=== PATIENT | female | born 1995 | race Caucasian/White ===

== ENCOUNTER 2016-08-22 15:40 | Emergency (ER) | payer BC, OTHER ==
[~2016-08-22] VITALS: Ht 157.5 cm; Wt 49.1 kg
[~2016-08-22 15:40] MED LIST: IBUP-1050 PO; OXYC-57 PO
[2016-08-22 16:03] VITALS: Ht 157.5 cm; Wt 49.1 kg
[2016-08-22] MEDS ORDERED: CEFTRIAXONE SOD INJ 1 GM ADDVIAL IV STA (17:11)
[2016-08-22] MEDS ORDERED: MoRPHine SULFATE 4 MG/ML 1 ML CARP\\VIAL IV STA ×2 (17:11→19:05)
[2016-08-22] MEDS ORDERED: ONDANSETRON INJ 2 MG/ML 2 ML VIAL IV STA ×2 (17:11→19:05)
[2016-08-22] MEDS ORDERED: CEFAZOLIN SOD 1000MG/55 ML D5W IV STA (17:24)
[2016-08-22] MEDS ORDERED: CLON2TAB3 PO (17:27)
[2016-08-22] MEDS ORDERED: DPPRI400 INJ (17:29)
[2016-08-22] MEDS ORDERED: DIPHTHERIA/TETANUS/PERTUSSIS 0.5 ML SYR/VIAL IM. ONE (17:30)
[2016-08-22 17:42] LABS: BENZODIAZEPINE, URINE NEG (NEG); COCAINE,URINE NEG (NEG); PHENCYCLIDINE, URINE NEG (NEG)
[2016-08-22 18:17] LABS: BASO % 0.2 %; EOS % 0.3 %; HEMATOCRIT 44.9 % (37-47); IG% 0.3 %; LYMPH % 17.8 %; MEAN CELL VOLUME 91.1 fL (80-100); MEAN CORPUSCULAR HEMOGLOBIN 32.5 pg (25-34); MEAN CORPUSCULAR HGB CONC 35.6 g/dl (32-36); MEAN PLATELET VOLUME 12.1 fL (7.4-10.4); NEUT % 71.4 %; PLATELET COUNT 226 K/uL (130-400); RED BLOOD COUNT 4.93 M/uL (4.2-5.4); WHITE BLOOD COUNT 12.14 K/uL (4.8-10.8)
[2016-08-22 18:18] LABS: BASO ABS # 0.02 K/uL (0-0.2); COMPLETE YES; LYMPH ABS # 2.16 K/uL (1.2-3.4)
[2016-08-22 18:34] LABS: INR 1.1 (0.9-1.1); PROTHROMBIN TIME (PATIENT) 11.5 SECONDS (9.0-12.0)
[2016-08-22 18:44] LABS: ALKALINE PHOSPHATASE 89 U/L (45-117); ALT/SGPT 77 U/L (12-78); BLOOD UREA NITROGEN 7 mg/dl (7-18); BUN/CREATININE RATIO 7.2 (10-20); CALCIUM 8.6 mg/dl (8.5-10.1); CARBON DIOXIDE 27 mmol/L (21-32); CHLORIDE 106 mmol/L (98-107); CREATININE 0.99 mg/dl (0.60-1.20); GLUCOSE 90 mg/dl (70-99)
[2016-08-22 18:57] LABS: AST/SGOT 21 U/L (15-37); POTASSIUM 3.1 mmol/L (3.5-5.1); SODIUM 145 mmol/L (136-145)
[2016-08-22 19:31] VITALS: BP 164/110; PULSE 96; TEMP 37.3; O2SAT 100
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
[2016-08-25 14:41] LABS: COD UR NEGATIVE NG/ML (CUTOFF=50); HYDROCOD UR NEGATIVE NG/ML (CUTOFF=50); HYDROMOR UR NEGATIVE NG/ML (CUTOFF=50); MORPHINE UR 265 NG/ML (CUTOFF=50); NORHYDROCODONE CONF UR NEGATIVE NG/ML (CUTOFF=50); OXYMORPH UR NEGATIVE NG/ML (CUTOFF=50)
== END 2016-08-22 19:53 | disposition short-term general hospital (02) ==
LOC: C.EDB 15:41
DX: T24.312A Burn of third degree of left thigh, initial encounter (principal); T24.211A Burn of second degree of right thigh, initial encounter; T21.21XA Burn of second degree of chest wall, initial encounter; T20.26XA Burn of second degree of forehead and cheek, initial encounter; L03.116 Cellulitis of left lower limb; T22.022A Burn of unspecified degree of left elbow, initial encounter; T24.022A Burn of unspecified degree of left knee, initial encounter; X58.XXXA Exposure to other specified factors, initial encounter; Y92.59 Other trade areas as the place of occurrence of the external cause; F17.200 Nicotine dependence, unspecified, uncomplicated; Z82.49 Family history of ischemic heart disease and other diseases of the circulatory system; Z23 Encounter for immunization